=== PATIENT | female | born 1940 | race Caucasian/White ===

== ENCOUNTER → 2017-09-26 | Outpatient (CLI) | payer MEDICARE ==
--- NOTE | 2017-09-26 14:41 | CARD ---
MR#: [id number] Date of Study: 09/26/2017 Ordering Physician: KATARZYNA CARABALLO, Referring Physician: KATARZYNA CARABALLO, Tech: Ruth Stephenson RDCS APPROVED REPORT EXAM: Two-dimensional and M-mode echocardiogram with Doppler and color Doppler. Other Information Quality : Good INDICATION Mitral Regurgitation 2D DIMENSIONS RVDd2.3 (2.9-3.5cm)Left Atrium(2D)3.3 (1.6-4.0cm) IVSd0.7 (0.7-1.1cm)Aortic Root(2D)2.4 (2.0-3.7cm) LVDd4.9 (3.9-5.9cm)LVOT Diameter1.9 (1.8-2.4cm) PWd0.7 (0.7-1.1cm)LVDs3.3 (2.5-4.0cm) FS (%) 32.9 %SV68.0 ml LVEF(%)60.0 (>50%) Aortic Valve AoV Peak Frank.90.4cm/sAoV VTI17.7cm AO Peak GR.3.3mmHgLVOT Peak Frank.78.7cm/s LVOT VTI 16.34cmAO Mean GR.1mmHg ANNI (VMAX)2.19la7YQQ (VTI)2.52cm2 Mitral Valve MV E Jovyxqzk86.0cm/sMV DECEL [id number] MV A Orbemlgm72.5cm/sMV LCV06wl E/A Ratio0.7MVA (PHT)3.00cm2 TDI E/Lateral E'6.4E/Medial E'14.7 Tricuspid Valve TR P. Cmnkanqv498jh/sRAP JNJFFMQG5sqIo TR Peak Gr.38jvJuQEMF30ftYv Pulmonary Vein S1 Ymjvwdlq69.2cm/sD2 Zxrqqogi32.3cm/s LEFT VENTRICLE The left ventricle is normal size. There is normal left ventricular wall thickness. The left ventricu lar systolic function is normal. The Ejection Fraction is 60-65%. There is normal LV segmental wall m otion. Transmitral Doppler flow pattern is Grade I-abnormal relaxation pattern. RIGHT VENTRICLE The right ventricle is normal size. The right ventricular systolic function is normal. ATRIA The left atrium size is normal. The right atrium size is normal. The interatrial septum is intact wit h no evidence for an atrial septal defect or patent foramen ovale as noted on 2-D or Doppler imaging. AORTIC VALVE The aortic valve is calcified but opens well. Doppler and Color Flow revealed trace aortic regurgitat ion. There is no significant aortic valvular stenosis. MITRAL VALVE The mitral valve is calcified but opens well. Posterior mitral annular calcification is mild. There i s no evidence of mitral valve prolapse. There is no mitral valve stenosis. Doppler and Color-flow rev ealed mild mitral regurgitation. TRICUSPID VALVE The tricuspid valve is normal in structure and function. Doppler and Color Flow revealed trace to mil d tricuspid regurgitation. There is mild to moderate pulmonary hypertension. The PA pressure was robson mated at 43 mmHg. There is no tricuspid valve stenosis. PULMONIC VALVE The pulmonic valve is not well visualized. Doppler and Color Flow revealed no pulmonic valvular regur gitation. There is no pulmonic valvular stenosis. GREAT VESSELS The aortic root is normal in size. The ascending aorta is normal in size. The IVC is normal in size a nd collapses >50% with inspiration. PERICARDIAL EFFUSION There is no evidence of significant pericardial effusion. Critical Notification Critical Value: No <Conclusion> The left ventricular systolic function is normal. The Ejection Fraction is 60-65%. There is normal LV segmental wall motion. Transmitral Doppler flow pattern is Grade I-abnormal relaxation pattern. Mild mitral regurgitation. Trace to mild tricuspid regurgitation. The PA pressure was estimated at 43 mmHg. There is no evidence of significant pericardial effusion. Signed by : Dipak Samuel, Electronically Approved : 09/26/2017 14:40:43
== END | disposition home or self-care (01) ==
LOC: ECHO 09:34
PROVIDERS: ATTEND Internal Medicine Cardiovascular Disease
DX: I34.0 Nonrheumatic mitral (valve) insufficiency (principal)
CPT/HCPCS: 93306

== ENCOUNTER → 2018-10-17 | Outpatient (CLI) | payer MEDICARE ==
[2018-08-31 17:11] VITALS: BP 143/67
[~2018-10-17] MED LIST: CONTRAST GIVEN. MC PRN; IOHEXOL 300 MG/ML 100ML VIAL. IV ONE; ONDA4TAB7 PO
--- NOTE | 2018-10-17 11:02 | CARD ---
MR#: [id number] Date of Study: 10/17/2018 Ordering Physician: KATARZYNA GARCIA, Referring Physician: KATARZYNA GARCIA, Tech: Ruth Stephenson RDCS APPROVED REPORT EXAM: Two-dimensional and M-mode echocardiogram with Doppler and color Doppler. Other Information Quality : Good INDICATION Mitral Regurgitation 2D DIMENSIONS RVDd2.5 (2.9-3.5cm)Left Atrium(2D)3.3 (1.6-4.0cm) IVSd0.6 (0.7-1.1cm)Aortic Root(2D)2.6 (2.0-3.7cm) LVDd4.6 (3.9-5.9cm)LVOT Diameter2.0 (1.8-2.4cm) PWd0.5 (0.7-1.1cm)LVDs3.3 (2.5-4.0cm) FS (%) 27.4 %SV50.7 ml LVEF(%)60.0 (>50%) Aortic Valve AoV Peak Frank.119.0cm/sAoV VTI21.6cm AO Peak GR.5.7mmHgLVOT Peak Frank.100.0cm/s LVOT VTI 21.20cmAO Mean GR.3mmHg ANNI (VMAX)2.60rs4BJV (VTI)2.93cm2 Mitral Valve MV E Urgmogdh56.2cm/sMV DECEL SZSL770oi MV A Njjklkkb23.1cm/sMV OJE52ow E/A Ratio0.9MVA (PHT)3.39cm2 TDI E/Lateral E'8.0E/Medial E'14.9 Tricuspid Valve TR P. Befbizrq439cu/sRAP CLKJKBKI1qzJb TR Peak Gr.83lzHuTGNJ72hfOk Pulmonary Vein S1 Gxsancpj16.0cm/sD2 Twurfwhm34.1cm/s LEFT VENTRICLE The left ventricle is normal size. There is normal left ventricular wall thickness. The left ventricu lar systolic function is normal and the ejection fraction is within normal range. The Ejection Fracti on is 55-60%. There is normal LV segmental wall motion. Transmitral Doppler flow pattern is Grade I-a bnormal relaxation pattern. RIGHT VENTRICLE The right ventricle is normal size. The right ventricular systolic function is normal. ATRIA The left atrium size is normal. The right atrium size is normal. The interatrial septum is intact wit h no evidence for an atrial septal defect or patent foramen ovale as noted on 2-D or Doppler imaging. AORTIC VALVE The aortic valve is calcified but opens well. Doppler and Color Flow revealed no significant aortic r egurgitation. There is no significant aortic valvular stenosis. MITRAL VALVE The mitral valve is calcified but opens well. Mitral annular calcification is mild. There is no evide nce of mitral valve prolapse. There is no mitral valve stenosis. Doppler and Color-flow revealed mild mitral regurgitation. TRICUSPID VALVE The tricuspid valve is normal in structure and function. Doppler and Color Flow revealed moderate tri cuspid regurgitation The PA pressure was estimated at 48 mmHg. There is no tricuspid valve stenosis. PULMONIC VALVE The pulmonic valve is not well visualized. Doppler and Color Flow revealed no pulmonic valvular regur gitation. There is no pulmonic valvular stenosis. GREAT VESSELS The aortic root is normal in size. The ascending aorta is normal in size. The IVC is normal in size a nd collapses >50% with inspiration. PERICARDIAL EFFUSION There is no evidence of significant pericardial effusion. Critical Notification Critical Value: No <Conclusion> The left ventricle is normal size. The left ventricular systolic function is normal and the ejection fraction is within normal range. The Ejection Fraction is 55-60%. There is no significant aortic valvular stenosis. Doppler and Color Flow revealed no significant aortic regurgitation. Doppler and Color-flow revealed mild mitral regurgitation. Doppler and Color Flow revealed moderate tricuspid regurgitation The PA pressure was estimated at 48 mmHg. Signed by : Katarzyna Garcia MD Electronically Approved : 10/17/2018 11:02:27
--- NOTE | 2018-10-17 13:18 | RAD ---
CT study of the soft tissues the neck with contrast Clinical indications: Tonsil cancer. TECHNIQUE: After IV infusion of 75 cc of Isovue-300, helical CT scanning of the soft tissues of the neck from the base of skull down to the lung apices was performed. PQRS compliance Statement One or more of the following individualized dose reduction techniques were utilized for this study: 1. Automated exposure control 2. Adjustment of the mA and/or kV according to patient size 3. Use of iterative reconstruction technique COMPARISON: None available. FINDINGS: The right palatine tonsil is larger in comparison to the left side. There is asymmetric enhancement of the right palatine tonsil. There is streaking artifact from dental work which partially obscures this area. However, the approximate AP dimension is 2.6 cm and transverse dimension is 2.1 cm and vertical dimension is 1.8 cm. No lateral soft tissue mass extension into the neck is seen. There is mild sublingual tonsillar hypertrophy within the valleculae and base of the tongue. The adenoids are not abnormally thickened. The epiglottis and aryepiglottic folds and preepiglottic fat space and true cords and false cords are unremarkable. No thyroid gland mass is present. The submandibular and parotid salivary glands are unremarkable. No lytic process is evident. No opacification of the paranasal sinuses is seen. The frontal sinuses are not completely seen in this study. No enlarged cervical lymphadenopathy is seen within the neck. Biapical emphysema is seen. IMPRESSION: Enhancing right palatine tonsillar lesion with measurements as above. No enlarged cervical lymphadenopathy. Sublingual tonsillar hypertrophy involving the base of the tongue and valleculae. Electronically signed by: Truman Betancourt MD (10/17/2018 1:16 PM) [place] [id number]
== END | disposition home or self-care (01) ==
LOC: CT 09:00
PROVIDERS: ATTEND Otolaryngology Plastic Surgery within the Head & Neck
DX: C09.9 Malignant neoplasm of tonsil, unspecified (principal); I08.3 Combined rheumatic disorders of mitral, aortic and tricuspid valves; J35.1 Hypertrophy of tonsils; I45.0 Right fascicular block
CPT/HCPCS: 70491; 93306; Q9967

== ENCOUNTER → 2018-11-01 | Outpatient (CLI) | payer MEDICARE ==
[2018-08-31 17:11] VITALS: BP 143/67
[~2018-11-01] MED LIST changes: +ASPI-630 PO; +ATOR40TA59 PO; +CHOL100014 PO; -CONTRAST GIVEN. MC PRN; +HYDR12.58 PO; -IOHEXOL 300 MG/ML 100ML VIAL. IV ONE; +L. A1CAP3 PO; +PANT40TA77 PO; +TYLENOL PM PO
--- NOTE | 2018-11-01 14:51 | RAD ---
Examination: PET W CT SKULL TO MIDTHIGH History: Tonsillar cancer Comparison/Correlation: 10/17/2018 CT neck with contrast FINDINGS: Net dose 12.85 mCi F-18 FDG was administered intravenously for purposes of PET/CT exam. Blood glucose level at the time of radiotracer administration was 109 mg/dL. Imaging was performed from the skull base to the proximal thighs. Hepatic reference uptake is SUV max of 2.2 . Uptake of radiotracer is intense involving the right tonsil with SUV max of 8.1. At the inferior aspect of the right parotid gland, there is a small focus of uptake which appears to corresponding to a lymph node with SUV max of 2. This lymph node measures up to 0.5 cm diameter. Extensive emphysematous involvement of the lung mckeon is evident. No pulmonary nodule or mass identified. Marked coronary artery calcifications present. No enlarged thoracic lymph nodes. Focus of uptake involving the cecum with SUV maximum of the C6 is present. No definite corresponding finding on CT images. Uptake involving bowel otherwise is physiologic in distribution. Cholecystectomy is noted. Marked calcific involvement of the middle aorta is evident. Bladder is unremarkable. Calcified fibroid involves the uterine fundus. No radiopaque collecting system calculi. Bilateral femoral head sclerosis again noted. Correlate for underlying AVN. IMPRESSION: Intense uptake corresponding to the patient's known right tonsillar mass compatible with active neoplastic disease. There is a right carotid lymph node or possibly mass at the inferior aspect with mild uptake. This may be reactive. Underlying metastatic involvement is not necessarily excluded. Intense focus of uptake involving the cecum is of indeterminate significance. Consider correlation with direct visualization to assess for possible underlying polyp or other mass. PQRS Compliance Statement: One or more of the following individualized dose reduction techniques were utilized for this examination: 1. Automated exposure control 2. Adjustment of the mA and/or kV according to patient size 3. Use of iterative reconstruction technique Electronically signed by: Romero Mcintosh MD (11/01/2018 2:48 PM) [facility]
== END | disposition home or self-care (01) ==
LOC: PETSC 11:42
PROVIDERS: ATTEND Internal Medicine Hematology & Oncology
DX: C09.0 Malignant neoplasm of tonsillar fossa (principal); J43.8 Other emphysema; N85.8 Other specified noninflammatory disorders of uterus; I25.10 Atherosclerotic heart disease of native coronary artery without angina pectoris; Z90.49 Acquired absence of other specified parts of digestive tract
CPT/HCPCS: 78815; A9552

== ENCOUNTER 2018-11-05 11:05 | Observation (INO) | payer MEDICARE ==
[~2018-11-05] VITALS: Ht 160 cm; Wt 52.4 kg
[2018-11-05] VITALS (7 sets, daily range): BP systolic 114–127; BP diastolic 37–67
[~2018-11-05 11:05] MED LIST changes: +BUPIVACAINE-EPI 0.25%-1:200000 MPF 30 ML VIAL. INJ ONE; +DEXAMETHASONE SOD PHOS 4 MG/ML VIAL ONE; +ETOMIDATE 20 MG/10 ML VIAL. IV ONE; +GLYCOPYRROLATE 1 MG/5 ML VIAL. ONE; +IV RINGERS,LACTATED 1000ML 1,000 ML IV SCH; +LIDOCAINE 1% PF 2 ML VIAL. ID PRN; +LIDOCAINE 2% PF 5 ML VIAL. ONE; +ONDANSETRON PF 4 MG/2 ML VIAL. IV PRN; +ONDANSETRON PF 4 MG/2 ML VIAL. ONE; +PHENYLEPHRINE in 0.9% NACL PF 1 MG/10 ML SYRINGE. IV ONE; +PROCHLORPERAZINE 10 MG/2 ML VIAL. IV PRN; +ROCURONIUM 50 MG/5 ML VIAL. ONE; +SUCCINYLCHOLINE 200 MG/10 ML VIAL. ONE; +ePHEDrine PF IN SALINE 50 MG/10 ML SYRINGE. IV ONE; +fentaNYL PF VIAL 100 MCG/2 ML VIAL IV PRN
[2018-11-05] MEDS ORDERED: fentaNYL PF VIAL 100 MCG/2 ML VIAL ONE ×2 (11:46→14:31)
[2018-11-05] MEDS ORDERED: LIDOCAINE 1%/EPI 1:100,000 20 ML VIAL. ONE (11:47)
[2018-11-05] MEDS ORDERED: GLYCOPYRROLATE 1 MG/5 ML VIAL. ONE (13:15)
[2018-11-05] MEDS ORDERED: NEOSTIGMINE METHYLSULFATE 5 MG/5 ML SYRINGE. ONE (13:15)
[2018-11-05] MEDS ORDERED: DEXAMETHASONE SOD PHOS 4 MG/ML VIAL ONE (13:24)
[2018-11-05] MEDS ORDERED: LIDOCAINE 2% PF 5 ML VIAL. ONE (13:26)
[2018-11-05] MEDS ORDERED: SEVOFLURANE 61 TO 120 MINUTES. IH ONE (14:03)
[2018-11-05] MEDS ORDERED: ONDANSETRON ODT 4 MG TAB.RAPDIS. PO ONE (15:00)
--- NOTE | 2018-11-05 15:07 | PDOC4 ---
OPERATIVE NOTE Pre-Op Diagnosis: SCCA Right RMT/Tonsil Post-Op Diagnosis: same Procedure Performed: Right radical tonsillectomy Surgeon: Niles Anesthesia Type: gen Blood Loss: 50cc Specimans Obtained: Right tonsil and palate, several frozen sections Findings: Right RMT tumor extending into palate and superior pole of the tonsil Complications: none LEXIS PIERSON MD Nov 05, 2018 15:07
[2018-11-05] MEDS: fentaNYL PF VIAL 100 MCG/2 ML VIAL IV PRN ×6 (15:25→23:41)
[2018-11-05] MEDS: IV NORMAL SALINE 1000ML BAG 1,000 ML IV SCH (16:39)
[2018-11-05] MEDS ORDERED: ONDANSETRON PF 4 MG/2 ML VIAL. IVP PRN (20:45)
[2018-11-05] MEDS: ATORVASTATIN CALCIUM 40 MG TABLET. PO SCH (21:00)
[2018-11-05] MEDS: ACETAMINOPHEN 500 MG TABLET PO SCH (21:00)
[2018-11-05] MEDS: diphenhydrAMINE HCL 25 MG CAPSULE PO SCH (21:00)
--- NOTE | 2018-11-05 23:35 | OP ---
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 PROCEDURE: Radical tonsillectomy with frozen section. DESCRIPTION OF PROCEDURE: The patient was brought to the operating room and placed in the supine position. General anesthesia was obtained. An oral endotracheal tube was inserted. The patient was prepped and draped for right radical tonsillectomy. McIvor mouth gag was used to expose the oral cavity. She did not have any trismus. She had a mass that was present on the superior aspect of the right tonsil extending superiorly into the palate and anteriorly to the retromolar trigone. It was mobile. 1% lidocaine with 1:100,000 epinephrine was infiltrated in the palate, the retromolar trigone, and the posterior pillar of the right tonsil. A Metzenbaum scissor was used to incise the palate above the gross disease and this was then extended medially toward the uvula. The superior aspect of the tumor was then retracted medially and a plane that was lateral to the tonsil and lateral to the tumor was then established utilizing Metzenbaum scissor with blunt dissection the tonsil from the pharyngeal musculature and sharply dissecting in the retromolar trigone from superior to inferior. The inferior pole of the tonsil was dissected bluntly and then the remaining tonsil was removed from the surrounding pharyngeal musculature. This was then sent to the permanent specimen. At this time, frozen sections were sent circumferentially around the mucosal edges that had been created by the resection of the tumor and a deep margin that was present on the lateral edge of the superior pole, the medial aspect of where the angle of the mandible met the pharyngeal musculature. The pathologist returned with a positive margin present at the deep margin. The surrounding mucosal margins were all negative. This was the area that was in most question and the closest area of potential tumor just posterior to the molar at the medial aspect of the angle of mandible. A 15 blade was then used to remove an additional 4-5 mm of tissue in this area and a second margin was then sent. The second margin did return positive for squamous cell carcinoma. At this point, a third margin was taken in this same questionable area. The third margin came back, not with a qonzgqb-wxp-qtpxziq disease, but rather microscopic disease in pharyngeal musculature. This was not to the periosteum. The periosteum remained intact and there was no evidence of gross disease at all, only microscopic disease was present on the final margin. The wound was examined for hemostasis, which was achieved utilizing suction cautery. 1% lidocaine with 1:200,000 epinephrine was infiltrated in the tonsillar capsule region and along the free edge of the palate. The patient was then awoken from anesthesia and transferred to the recovery room stable. She will be admitted over a 23-hour observation period with Percocet for pain, fentanyl for breakthrough pain, and Tylenol as needed. She will refrain from using aspirin. Follow up with me in 2 weeks, we will have permanent pathology back at that time. LEXIS PIERSON MD DR: CUONG/parish JOB#: [id number] / [id number]
[2018-11-06] MEDS: IV NORMAL SALINE 1000ML BAG 1,000 ML IV SCH ×3 (01:48→21:24)
[2018-11-06 03:00] VITALS: BP 119/51
[2018-11-06] MEDS: fentaNYL PF VIAL 100 MCG/2 ML VIAL IV PRN ×2 (05:47→09:15)
[2018-11-06 07:00] VITALS: BP 114/55
[2018-11-06] MEDS: PANTOPRAZOLE 40 MG TABLET.DR. PO SCH (09:15)
[2018-11-06] MEDS: CHOLECALCIFEROL (VITAMIN D3) 1,000 UNIT TABLET PO SCH (09:15)
[2018-11-06] MEDS: LACTOBACILLUS RHAMNOSUS GG 1 CAPSULE. PO SCH (09:15)
[2018-11-06] MEDS: hydroCHLOROthiazide 12.5 MG CAPSULE PO SCH (09:15)
[2018-11-06 11:00] VITALS: BP 122/44
[2018-11-06] MEDS: oxyCODONE/APAP 7.5/325 1 TAB TABLET PO PRN ×2 (11:59→18:05)
[2018-11-06 15:00] VITALS: BP 120/50
--- NOTE | 2018-11-06 15:32 | NUR ---
LVM x2 at Dr Cage' ofc re: obs status. Case mgmt updated.
[2018-11-06] MEDS ORDERED: OXYC1TAB19 PO (17:49)
--- NOTE | 2018-11-06 17:58 | PDOC ---
PROGRESS NOTES Subjective Subjective Feeling punky. She heard a hospital employee call her a "B", and was very upset. She is talking well tonight. She still has O2 on by Nasal cannula. Percocet is better at controlling her pain. Not taking po well. Ready to try mashed potatoes. Objective Objective Vital Signs Date Time Temp Pulse Resp B/P (MAP) Pulse Ox O2 Delivery O2 Flow Rate FiO2 11/06/18 12:59 Nasal Cannula 2.0 11/06/18 11:00 97.5 79 18 122/44 (70) 99 97.5 Intake and Output 11/06/18 06:59 Intake Total 1220 ml Output Total 250 ml Balance 970 ml Intake Oral 270 ml IV Total 950 ml Output Urine Total 200 ml Estimated Blood Loss 50 ml Throat with exudate as expected. No trismus Assessment Assessment PO Radical tonsillectomy for SCCA Expected recovery. Plan Plan of Care Needs to be off O2, Maintaining saturation, tolerating po Anticipate DC in AM Comment Review of Relevant I have reviewed the following items velma (where applicable) has been applied. Medications Current Medications Ondansetron HCl (Zofran) 4 mg PRN Q6HRS PRN IV NAUSEA/VOMITING Last administered on 11/05/18at 19:09; Start 11/05/18 at 07:00; Stop 11/06/18 at 06:59; Status DC Fentanyl Citrate (Fentanyl 2ml Vial) 25 mcg PRN Q5MIN PRN IV MILD PAIN 1-3; Start 11/05/18 at 07:00; Stop 11/06/18 at 06:59; Status DC Fentanyl Citrate (Fentanyl 2ml Vial) 50 mcg PRN Q5MIN PRN IV MODERATE TO SEVERE PAIN Last administered on 11/05/18at 16:13; Start 11/05/18 at 07:00; Stop 11/06/18 at 06:59; Status DC Ringer's Solution 1,000 ml @ 30 mls/hr Q24H IV Last administered on 11/05/18at 07:00; Start 11/05/18 at 07:00; Stop 11/05/18 at 18:59; Status DC Lidocaine HCl (Xylocaine-Mpf 1% 2ml Vial) 2 ml PRN 1X PRN ID PRIOR TO IV START; Start 11/05/18 at 07:00; Stop 11/06/18 at 06:59; Status DC Prochlorperazine Edisylate (Compazine) 5 mg PACU PRN PRN IV NAUSEA, MRX1; Start 11/05/18 at 07:00; Stop 11/06/18 at 06:59; Status DC Bupivacaine HCl/ Epinephrine Bitart (Sensorcaine-Epi 0.25%-1:869161 Mpf) 30 ml 1X ONCE INJ Last administered on 11/05/18at 13:24; Start 11/05/18 at 06:30; Stop 11/05/18 at 06:31; Status DC Etomidate (Amidate) 20 mg STK-MED ONCE IV ; Start 11/05/18 at 09:38; Stop 11/05/18 at 09:38; Status DC Lidocaine HCl (Lidocaine Pf 2% Vial) 5 ml STK-MED ONCE .ROUTE ; Start 11/05/18 at 09:38; Stop 11/05/18 at 09:39; Status DC Dexamethasone Sodium Phosphate (Decadron) 4 mg STK-MED ONCE .ROUTE ; Start 11/05/18 at 09:38; Stop 11/05/18 at 09:39; Status DC Ondansetron HCl (Zofran) 4 mg STK-MED ONCE .ROUTE ; Start 11/05/18 at 09:38; Stop 11/05/18 at 09:39; Status DC Phenylephrine HCl (PHENYLEPHRINE in 0.9% NACL PF) 1 mg STK-MED ONCE IV ; Start 11/05/18 at 09:38; Stop 11/05/18 at 09:39; Status DC Ephedrine Sulfate (ePHEDrine PF IN SALINE SYRINGE) 50 mg STK-MED ONCE IV ; Start 11/05/18 at 09:38; Stop 11/05/18 at 09:39; Status DC Rocuronium [place] (Zemuron) 50 mg STK-MED ONCE .ROUTE ; Start 11/05/18 at 09:39; Stop 11/05/18 at 09:39; Status DC Glycopyrrolate (Robinul) 1 mg STK-MED ONCE .ROUTE ; Start 11/05/18 at 09:40; Stop 11/05/18 at 09:41; Status DC Succinylcholine Chloride (Anectine) 200 mg STK-MED ONCE .ROUTE ; Start 11/05/18 at 09:41; Stop 11/05/18 at 09:41; Status DC Fentanyl Citrate (Fentanyl 2ml Vial) 100 mcg STK-MED ONCE .ROUTE ; Start 11/05/18 at 11:46; Stop 11/05/18 at 11:46; Status DC Lidocaine/ Epinephrine (LIDOCAINE 1%-EPI 1:100,000 Multi-Dose) 20 ml STK-MED ONCE .ROUTE Last administered on 11/05/18at 13:24; Start 11/05/18 at 11:47; Stop 11/05/18 at 11:48; Status DC Neostigmine Methylsulfate (Neostigmine Methylsulfate) 5 mg STK-MED ONCE .ROUTE ; Start 11/05/18 at 13:15; Stop 11/05/18 at 13:15; Status DC Glycopyrrolate (Robinul) 1 mg STK-MED ONCE .ROUTE ; Start 11/05/18 at 13:15; Stop 11/05/18 at 13:15; Status DC Dexamethasone Sodium Phosphate (Decadron) 4 mg STK-MED ONCE .ROUTE ; Start 11/05/18 at 13:24; Stop 11/05/18 at 13:25; Status DC Lidocaine HCl (Lidocaine Pf 2% Vial) 5 ml STK-MED ONCE .ROUTE ; Start 11/05/18 at 13:26; Stop 11/05/18 at 13:27; Status DC Sevoflurane (Ultane) 60 ml STK-MED ONCE IH ; Start 11/05/18 at 14:03; Stop 11/05/18 at 14:04; Status DC Fentanyl Citrate (Fentanyl 2ml Vial) 100 mcg STK-MED ONCE .ROUTE ; Start 11/05/18 at 14:31; Stop 11/05/18 at 14:31; Status DC Sodium Chloride 1,000 ml @ 100 mls/hr Q10H IV Last administered on 11/06/18at 11:28; Start 11/05/18 at 14:55 Oxycodone/ Acetaminophen (Percocet 7.5/ 325) 1 tab PRN Q4HRS PRN PO PAIN Last administered on 11/06/18at 11:59; Start 11/05/18 at 15:00 Fentanyl Citrate (Fentanyl 2ml Vial) 50 mcg PRN Q2HR PRN IV PAIN Last administered on 11/06/18at 09:15; Start 11/05/18 at 15:00 Ondansetron HCl (Zofran Odt) 4 mg 1X ONCE PO Last administered on 11/05/18at 17:00; Start 11/05/18 at 15:00; Stop 11/05/18 at 15:08; Status DC Atorvastatin Calcium (Lipitor) 40 mg QHS PO ; Start 11/05/18 at 21:00 Pantoprazole Sodium (Protonix) 40 mg DAILYAC PO Last administered on 11/06/18at 09:15; Start 11/06/18 at 07:30 Vitamin D (Vitamin D3) 1,000 unit DAILY PO Last administered on 11/06/18at 09:15; Start 11/06/18 at 09:00 Hydrochlorothiazide (Microzide) 12.5 mg DAILY PO Last administered on 11/06/18at 09:15; Start 11/06/18 at 09:00 Lactobacillus Rhamnosus (Culturelle) 1 cap DAILY PO Last administered on 11/06/18at 09:15; Start 11/06/18 at 09:00 Acetaminophen (Tylenol) 1,000 mg QHS PO ; Start 11/05/18 at 21:00 Diphenhydramine HCl (Benadryl) 50 mg QHS PO ; Start 11/05/18 at 21:00 Ondansetron HCl (Zofran) 4 mg PRN Q6HRS PRN IVP NAUSEA/VOMITING 1ST CHOICE Last administered on 11/06/18at 01:50; Start 11/05/18 at 20:45 Active Scripts Active Percocet 7.5-325 Mg Tablet (Oxycodone/Acetaminophen) 1 Each Tablet 1 Tab PO PRN Q4HRS PRN 10 Days Reported [Tylenol Pm] 1,000 Mg PO QHS Vitamin D3 (Cholecalciferol (Vitamin D3)) 1,000 Unit Capsule 1,000 Unit PO DAILY Probiotic 5 Billion Cell Cap (L. Acidophilus/Bifid. Animalis) 1 Each Cap.sprink 1 Each PO DAILY Aspirin 81 Mg Tab.chew 1 Tab PO DAILY Hydrochlorothiazide Tablet (Hydrochlorothiazide) 12.5 Mg Tablet 12.5 Mg PO DAILY Atorvastatin Calcium 40 Mg Tablet 1 Tab PO DAILY Pantoprazole Sodium (Pantoprazole Sodium) 40 Mg Tablet.dr 40 Mg PO DAILYAC Vitals/I & O Vital Sign - Last 24 Hours 11/05/18 11/05/18 11/05/18 11/05/18 17:56 18:30 19:00 19:10 Temp 97.9 97.9 Pulse 81 89 Resp 17 18 B/P (MAP) 120/49 (72) 118/67 (84) Pulse Ox 97 98 97 O2 Delivery Nasal Cannula Nasal Cannula Nasal Cannula Nasal Cannula O2 Flow Rate 2.0 2.0 2.0 2.0 11/05/18 11/05/18 11/05/18 11/05/18 20:00 21:01 21:31 23:00 Temp 97.8 97.8 Pulse 83 Resp 20 18 18 B/P (MAP) 126/61 (82) Pulse Ox 97 99 99 O2 Delivery Nasal Cannula Nasal Cannula Nasal Cannula Nasal Cannula O2 Flow Rate 2.0 2.0 2.0 11/05/18 11/06/18 11/06/18 11/06/18 23:41 00:11 03:00 05:47 Temp 97.4 97.4 Pulse 78 Resp 18 18 18 20 B/P (MAP) 119/51 (73) Pulse Ox 99 99 99 99 O2 Delivery Nasal Cannula Nasal Cannula Nasal Cannula Nasal Cannula O2 Flow Rate 2.0 2.0 2.0 2.0 11/06/18 11/06/18 11/06/18 11/06/18 06:17 07:00 08:00 09:15 Temp 97.4 97.4 Pulse 79 Resp 20 18 B/P (MAP) 114/55 (74) Pulse Ox 99 99 O2 Delivery Nasal Cannula Nasal Cannula Nasal Cannula Nasal Cannula O2 Flow Rate 2.0 2.0 2.0 2.0 11/06/18 11/06/18 11/06/18 11/06/18 09:45 11:00 11:59 12:59 Temp 97.5 97.5 Pulse 79 Resp 18 B/P (MAP) 122/44 (70) Pulse Ox 99 O2 Delivery Nasal Cannula Nasal Cannula Nasal Cannula Nasal Cannula O2 Flow Rate 2.0 2.0 2.0 2.0 Intake and Output 11/05/18 11/05/18 11/06/18 14:59 22:59 06:59 Intake Total 750 ml 420 ml 50 ml Output Total 50 ml 200 ml Balance 700 ml 420 ml -150 ml LEXIS PIERSON MD Nov 06, 2018 17:58
[2018-11-06 19:00] VITALS: BP 124/50
[2018-11-06] MEDS: ACETAMINOPHEN 500 MG TABLET PO SCH (21:00)
[2018-11-06] MEDS: ATORVASTATIN CALCIUM 40 MG TABLET. PO SCH (21:28)
[2018-11-06] MEDS: diphenhydrAMINE HCL 25 MG CAPSULE PO SCH (21:28)
[2018-11-06 23:00] VITALS: BP 114/51
[2018-11-07] MEDS: oxyCODONE/APAP 7.5/325 1 TAB TABLET PO PRN ×3 (02:13→12:38)
[2018-11-07 03:00] VITALS: BP 113/48
--- NOTE | 2018-11-07 03:00 | NUR ---
Patients oxygen saturation dropped the upper 70's, put back on 2L and saturation david to 97%
[2018-11-07 07:15] VITALS: BP 126/56
[2018-11-07] MEDS: CHOLECALCIFEROL (VITAMIN D3) 1,000 UNIT TABLET PO SCH (09:00)
[2018-11-07] MEDS: PANTOPRAZOLE 40 MG TABLET.DR. PO SCH (09:05)
[2018-11-07] MEDS: LACTOBACILLUS RHAMNOSUS GG 1 CAPSULE. PO SCH (09:05)
[2018-11-07] MEDS: hydroCHLOROthiazide 12.5 MG CAPSULE PO SCH (09:05)
[2018-11-07 11:17] VITALS: BP 136/54
--- NOTE | 2018-11-07 13:10 | NUR ---
DISCHARGE INSTRUCTIONS GIVEN, QUESTIONS AND CONCERNS ANSWERED, PATIENTS' AT THE BEDSIDE AT THIS TIME, ALL PERSONAL BELONGINGS GATHERED BY THE PATIENT AND HER SPOUSE AND PLACED IN BAGS FOR DISCHARGE. SALINE LOCK REMOVED, OXYGEN TANK GIVEN TO PATIENT PER SOCIAL WORK WITH INSTRUCTIONS.
--- NOTE | 2018-11-07 13:13 | NUR ---
MONICA notified pt needs home 02. Orders faxed to [facility] and Physician reported pt has COPD and will put documentation EMR. Pt is provided with a tank to take home and is aware to call [facility] after dc.
--- NOTE | 2018-11-07 13:30 | NUR ---
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
--- NOTE | 2018-11-10 17:06 | PATHOLOGY ---
[facility] Accession Number: [id number] . 01 Material submitted: . PART A: tonsil - DEEP MARGIN, RIGHT RADICAL TONSILLECTOMY - FS. Modifiers: right PART B: tonsil - 12-3 O'CLOCK MARGIN, RIGHT RADICAL TONSILLECTOMY - FS. Modifiers: 12:00, 3:00 PART C: tonsil - 3-6 O'CLOCK MARGIN, RIGHT RADICAL TONSILLECTOMY - FS. Modifiers: 3:00, 6:00 PART D: tonsil - 6-9 O'CLOCK MARGIN, RIGHT RADICAL TONSILLECTOMY - FS. Modifiers: 6:00, 9:00 PART E: tonsil - 9-12 O'CLOCK MARGIN, RIGHT RADICAL TONSILLECTOMY - FS. Modifiers: 9:00, 12:00 PART F: tonsil - RIGHT TONSIL. Modifiers: right PART G: tonsil - DEEP MARGIN #2, RIGHT RADICAL TONSILLECTOMY - FS PART H: retromolar area - RETROMOLAR TRIGONE. Modifiers: trigone PART I: tonsil - DEEP MARGIN #3, RIGHT RADICAL TONSILLECTOMY - FS . 01 Clinical history: . Carcinoma right tonsil . 02 Frozen section diagnosis: . INTRAOPERATIVE CONSULTATIONS WITH FROZEN SECTIONS (Navneet Mena MD) . A. Deep margin: - Positive for tumor. . The results are telephoned to Dr. Cage in the operating room. . B. 12-3:00 margin: - Negative for tumor. . The results are reported to Dr. Cage in the operating room. . C. 3-6:00 margin: - Negative for tumor. . The results are reported to Dr. Cage in the operating room. . D. 6-9:00 margin: - Focally positive for tumor along the deep aspect. . The results are reported to Dr. Cage in the operating room. . E. 9-12:00 margin: - Negative for tumor. . The results are reported to Dr. Cage in the operating room. . G. New deep margin #2: - Positive for tumor. . The results are reported to Dr. Cage in the operating room. . I. New deep margin #3 right tonsil bed: - Small focus of tumor involvement identified. . The results are reported to Dr. Cage in the operating room. . Frozen sections performed at [facility], [address] [place] [address]. . . GROSS DESCRIPTION A. The specimen is received fresh for intraoperative consultation and is designated "deep margin". This consists of a nodular segment of red soft tissue measuring up to 0.4 cm in greatest dimension. This is submitted for frozen section as FSA1. The tissue remaining from frozen section is submitted for permanent sections as A1. . B. The specimen is received fresh for intraoperative consultation and is designated "12-3:00 margin". This consists of an elongate segment of pink glistening membranous tissue measuring up to 3.0 cm in length and 0.3 cm in width. This is submitted for frozen section as FSB1. The tissue remaining from frozen section is submitted for permanent sections as B1. . C. The specimen is received fresh for intraoperative consultation and is designated, "3-6:00 margin". This consists of an elongate segment of red membranous tissue measuring up to 1.3 cm in length and 0.4 cm in width. This is submitted for frozen section as FSC1. The tissue remaining from frozen section is submitted for permanent sections as C1. . D. The specimen is received fresh for intraoperative consultation and is designated, "6-9:00 margin. This consists of an elongate segment of pink-juarez membranous tissue measuring up to 1.7 cm in length and 0.2 cm in width. This is submitted for frozen as FSD1. The tissue remaining from frozen section is submitted for permanent sections as D1. . E. The specimen is received fresh for intraoperative consultation and is designated, 9-12:00 margin". This consists of an elongate segment of pink-red membranous tissue measuring up to 2.4 cm in length and 0.15 cm in width. This is submitted for frozen section as FSE1. The tissue remaining from frozen section is submitted for permanent sections as E1. . G. The specimen is received fresh for intraoperative consultation and is designated, "deep margin #2". This consists of a nodular segment of red-juarez tissue measuring up to 0.5 cm in greatest dimension. This is submitted for frozen section as FSG1. The tissue remaining from frozen section is submitted for permanent sections as G1. . I. The specimen is received fresh for intraoperative consultation is the "new deep margin #3 right tonsil bed". This consists of a segment of reddish brown hemorrhagic soft tissue measuring up to 0.5 cm in greatest dimension. This is submitted for frozen section as FSI1. The tissue remaining from frozen section is submitted for permanent sections as I1. (JPM:aimee/pit; 11/05/2018) QUINTEN/YANNAS . 02 Diagnosis: A. 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 . B. Squamous mucosa, submucosa, and skeletal muscle tissue, 12-3:00 margin: - Negative for tumor. . C. Squamous mucosa, submucosa, and skeletal muscle tissue, 3-6:00 margin: - Negative for tumor. . D. Squamous mucosa, submucosa, and skeletal muscle tissue, 6-9:00 margin: - Focal involvement by mucoepidermoid carcinoma along the deep aspect. . E. Squamous mucosa and submucosa, 9-12:00 margin: - Negative for tumor. . F. Norco tonsil and attached squamous mucosa, submucosa, and skeletal muscle tissue, right radical tonsillectomy: - INVASIVE MUCOEPIDERMOID CARCINOMA, INTERMEDIATE GRADE, FORMING A TUMOR MASS INVOLVING SQUAMOUS MUCOSA AND SUBMUCOSAL TISSUE ATTACHED TO SUPERIOR POLE OF TONSIL AND ADJACENT SUPERIOR POLE OF TONSIL, MEASURING 2.1 CM IN GREATEST DIMENSION. (SEE COMMENT). - Focal tumor involvement of inked deep and side margins of excision. - No lymphovascular tumor invasion identified. - No perineural tumor invasion identified. - Chronic sialadenitis, focal. - Involutional changes of tonsil. . G. Fibrous tissue, new deep margin #2: - INVOLVEMENT BY MUCOEPIDERMOID CARCINOMA. . H. Squamous mucosa, submucosa, and skeletal muscle tissue, right retromolar trigone: - SMALL FOCI OF INVOLVEMENT BY MUCOEPIDERMOID CARCINOMA. . I. Fibrous and skeletal muscle tissue, new deep margin #3: - SMALL FOCUS OF INVOLVEMENT BY MUCOEPIDERMOID CARCINOMA. (JPM:pit 11/07/2018) QTP 11/08/2018 1714 Local . 02 Comment: Special stain performed: Mucicarmine stain on F1 and F4. . Sections of the radical tonsillectomy reveal a tumor mass primarily involving squamous mucosa and submucosal tissue attached to the superior pole of the tonsil, in addition to focally involving the superior pole of the tonsil. The tumor is composed of a mixture of intermediate cells, epidermoid cells, clear cells, and mucous cells. The latter are only focally present within the tumor and appear to contain intracytoplasmic mucin. Properly-controlled Mucicarmine stains are obtained on blocks F1 and F4 and yield the following results: . Mucicarmine (F1): Mucous cells positive Mucicarmine (F4): Mucous cells positive . The intermediate cells show bland cytologic features. The epidermoid cells show focal moderate nuclear atypia and mitotic activity. There is no marked nuclear anaplasia present. There is no evidence of tumor necrosis. There is no lymphovascular tumor invasion. There is no perineural tumor invasion. The morphologic and special stain findings are supportive of the diagnosis of an intermediate grade mucoepidermoid carcinoma. The tumor appears to be arising within the squamous mucosa and submucosal tissue of the retromolar trigone area attached to the superior pole of the tonsil. . The case is also examined by Dr. Kelechi Casanova, who concurs with the diagnosis. The results are reported to Dr. Cage on 11/09/18 at 9:50 AM. . . (JPM:mml; 11/08/2018) . 02 Electronically signed: . Navneet Mena MD, Pathologist NPI- [id number] . 01 Gross description: . A. PLEASE SEE GROSS DESCRIPTION DICTATED BY THE PATHOLOGIST UNDER THE FROZEN SECTION HEADING. . B. PLEASE SEE GROSS DESCRIPTION DICTATED BY THE PATHOLOGIST UNDER THE FROZEN SECTION HEADING. . C. PLEASE SEE GROSS DESCRIPTION DICTATED BY THE PATHOLOGIST UNDER THE FROZEN SECTION HEADING. . D. PLEASE SEE GROSS DESCRIPTION DICTATED BY THE PATHOLOGIST UNDER THE FROZEN SECTION HEADING. . E. PLEASE SEE GROSS DESCRIPTION DICTATED BY THE PATHOLOGIST UNDER THE FROZEN SECTION HEADING. . F. The specimen is received in formalin, labeled "Brulja, Loueta, right tonsil", is a juarez-pink, rubbery tonsil weighing 5 g and measuring 3.5 x 1.5 x 1.3 cm. The resection margin is inked black, and the specimen is serially sectioned to reveal a juarez-pink firm mass within the superior aspect measuring 2.1 x 1.4 x 1.1 cm. The mass abuts the black inked margin and has few cystic elements. The specimen is entirely submitted in F1-F7 (F1-F5 = mass). ([facility]; 11/05/2018) . G. PLEASE SEE GROSS DESCRIPTION DICTATED BY THE PATHOLOGIST UNDER THE FROZEN SECTION HEADING. . H. The specimen is received in formalin, labeled "Brulja, Loueta, retromolar trigone", is an irregular fragment of juarez red soft tissue measuring 1.0 x 0.5 x 0.5 cm, entirely submitted in H1. ([facility]; 11/05/2018) . I. PLEASE SEE GROSS DESCRIPTION DICTATED BY THE PATHOLOGIST UNDER THE FROZEN SECTION HEADING. [facility] 11/07/2018 [employer] Local . 02 Pathologist provided ICD-10: C09.9, C06.2, K11.23 . 02 CPT . 796114, 925614, 476757, 312500, 002231, 520981, 358450, 497515, 583373, 925084, 185264, 645043, 552136, 511837, 812920, 768533, 497694, 129554 Specimen Comment: A courtesy copy of this report has been sent to Specimen Comment: [phone], . Specimen Comment: Report sent to / DR LEE Performed at: 01 [facility] [address], [place] [id number] MD Sebastian Will MD Phone: [phone] Performed at: 02 [facility] [address] [place], [place] [id number] MD Navneet Mena MD Phone: [phone]
== END 2018-11-07 13:30 | disposition home or self-care (01) ==
LOC: SURG 11:05 → 5 SOUTH 15:31
PROVIDERS: ADMIT Otolaryngology Plastic Surgery within the Head & Neck; ATTEND Otolaryngology Plastic Surgery within the Head & Neck
DX: C06.2 Malignant neoplasm of retromolar area (principal); C09.9 Malignant neoplasm of tonsil, unspecified
CPT/HCPCS: 42826; 88305; 88309; 88313; 88331; 94618; 96374; 96375; 96376; A7015; G0378; G0379; J0330; J1100; J2001; J2370; J2405; J2710; J3010; J3490; J7030; Q0162; Q0163; J0171